=== PATIENT | female | born 1975 | race Caucasian/White ===

== ENCOUNTER 2018-12-23 20:08 | Emergency (ER) | payer OTHER ==
--- NOTE | 2018-12-23 20:13 | PDOC ---
Rapid Medical Evaluation Time Seen by Provider: 12/23/18 20:11 Medical Evaluation: Allergies Allergy/AdvReac Type Severity Reaction Status Date / Time ciprofloxacin [From Cipro] Allergy Hives Verified 07/26/14 11:40 ciprofloxacin HCl Allergy Hives Verified 07/26/14 11:40 [From Cipro] latex Allergy Verified 07/26/14 11:40 12/23/18 20:11 I have performed a brief in-person evaluation of this patient. The patient presents with a chief complaint of: nausea since thursday, concern for . LMP 11/04 Pertinent physical exam findings: well appearing I have ordered the following: upreg The patient will proceed to the ED for further evaluation. Discharge Disposition - Diagnosis Possible - Referrals - Patient Instructions - Post Discharge Activity
[2018-12-23 20:16] VITALS: BP 101/71; PULSE 89; TEMP 98.8; BMI 28.5
--- NOTE | 2018-12-23 22:08 | PDOC ---
History of Present Illness - General Chief Complaint: ,Possible Stated Complaint: SICK/POSSIBLY Time Seen by Provider: 12/23/18 20:11 History Source: Patient Exam Limitations: No Limitations - History of Present Illness Initial Comments: 43 year old female with PMH uterine fibroids, tilted uterus A4 presented to ED because "I think I am but the home urine test was negative."She reported her LMP started 11/04/18, lasted 4 days, which was normal for her. She reported 11/10 she went to [employer], drank 2 glasses of wine at a bar, but felt much more drunk and nauseous than she usually would drinking that amount. Since then she has felt nausea everyday, denied abdominal pain/pelvic pain. She reported 11/18 she experienced light brown spotting and pelvic cramping, that progressed to red bleeding on 11/19, continued 11/20 and then stopped 11/21. She stated the nausea has continued, and she feels as if she is (she has been actively trying to get ), but her home urine test today was negative. Past History - Past Medical History Allergies/Adverse Reactions: Allergies Allergy/AdvReac Type Severity Reaction Status Date / Time ciprofloxacin [From Cipro] Allergy Hives Verified 12/23/18 20:16 ciprofloxacin HCl Allergy Hives Verified 12/23/18 20:16 [From Cipro] latex Allergy Verified 12/23/18 20:16 Home Medications: Ambulatory Orders Meclizine HCl [Antivert -] 25 mg PO TID PRN #15 tablet 07/26/14 Clotrimazole [Lotrimin 1% Cream -] 1 applic TP DAILY #7 tube 12/23/18 - Psycho Social/Smoking Cessation Hx Smoking History: Current every day smoker Number of Cigarettes Smoked Daily: 12 Information on smoking cessation initiated: No Hx Alcohol Use: No Drug/Substance Use Hx: No Review of Systems - Review of Systems Able to Perform ROS?: Yes Comments:: ROS General: denied fever, chills, generalized weakness. HEENT: denied sore throat, rhinorrhea, ear pain. Cardiovascular: denied chest pain, palpitations, syncope, diaphoresis. Respiratory: denied shortness of breath, cough, sputum production, hemoptysis. Gastrointestinal: admitted to nausea. denied abdominal pain, vomiting, diarrhea , constipation, blood in stool. Genitourinary: admitted to vaginal bleeding, vaginal discharge. denied dysuria, increased urinary frequency, hematuria, urinary incontinence, flank pain. Back: denied back pain. Musculoskeletal: denied joint pain, muscle pain, joint swelling. Neurological: denied headache, dizziness, numbness, tingling, weakness. Integumentary: denied rash, laceration, abrasion. Hematologic/Lymphatic: denied bruising or bleeding. PE Constitutional: Well-nourished, Well-developed, appearing stated age. HEENT: head is normocephalic, atraumatic. EOMI. PERRLA. Neck: supple. Full ROM. Cardiovascular: regular heart rhythm. no murmurs. no pericardial friction rub. Respiratory: clear to auscultation bilaterally. no crackles, rhonchi or wheezing. no stridor. Gastrointestinal: soft, nontender. normal bowel sounds. no rebound, guarding, masses. Pelvic: normal external genitalia. no CMT. no adnexal tenderness on bimanual examination. white cottage cheese like discharge in vaginal canal. no blood in vaginal canal. unable to visualize cervix on speculum examination 2/2 pt comfort (pt reported her tilted uterus makes it hard to see her cervix). cervix felt closed on bimanual palpation. Extremities: peripheral pulses intact. no lower extremity edema. Neurological: CN 2-12 grossly intact. moves all four extremities. Psych: awake, alert, oriented x3. follows commands. answers questions appropriately. *Physical Exam - Vital Signs Last Vital Signs Temp Pulse Resp BP Pulse Ox 98.8 F 89 18 101/71 97 12/23/18 20:10 12/23/18 20:10 12/23/18 20:10 12/23/18 20:10 12/23/18 20:10 ED Treatment Course - LABORATORY CBC & Chemistry Diagram: 12/23/18 22:05 12/23/18 22:05 - RADIOLOGY Radiology Studies Ordered: Category Date Time Status TRANSVAGINAL ULTRASOUND US [US] Stat Ultrasound 12/23/18 21:59 Ordered Medical Decision Making - Medical Decision Making 43 year old female with above PMH presented to ED for nausea, increased nipple sensation since 11/10, LMP 11/04. Initial Vital Signs Temp Pulse Resp BP Pulse Ox 98.8 F 89 18 101/71 97 12/23/18 20:10 12/23/18 20:10 12/23/18 20:10 12/23/18 20:10 12/23/18 20:10 Afebrile. No tachycardia. No tachypnea. Mild hypotension, would be normal in . No hypoxia on room air. Labs ordered: CBC, CMP, lipase, mag, serum beta quant, UA/UC, PT/INR, T&S, GC/ Chlamydia amplification Imaging ordered: TVUS Medications ordered: none 12/23/18 22:42 CBC WBC 11.8 K/mm3 (4.0-10.0) H 12/23/18 22:05 RBC 4.45 M/mm3 (3.60-5.2) 12/23/18 22:05 Hgb 14.0 GM/dL (10.7-15.3) 12/23/18 22:05 Hct 40.3 % (32.4-45.2) 12/23/18 22:05 MCV 90.7 fl (80-96) 12/23/18 22:05 MCH 31.5 pg (25.7-33.7) 12/23/18 22:05 MCHC 34.7 g/dl (32.0-36.0) 12/23/18 22:05 RDW 13.3 % (11.6-15.6) 12/23/18 22:05 Plt Count 252 K/MM3 (134-434) 12/23/18 22:05 MPV 8.9 fl (7.5-11.1) 12/23/18 22:05 Absolute Neuts (auto) 6.0 K/mm3 (1.5-8.0) 12/23/18 22:05 Neutrophils % 50.7 % (42.8-82.8) 12/23/18 22:05 Lymphocytes % 37.4 % (8-40) 12/23/18 22:05 Monocytes % 7.5 % (3.8-10.2) 12/23/18 22:05 Eosinophils % 3.5 % (0-4.5) 12/23/18 22:05 Basophils % 0.9 % (0-2.0) 12/23/18 22:05 Nucleated RBC % 0 % (0-0) 12/23/18 22:05 Leukocytosis without left shift. No anemia. CMP Sodium 139 mmol/L (136-145) 12/23/18 22:05 Potassium 3.7 mmol/L (3.5-5.1) 12/23/18 22:05 Chloride 106 mmol/L (98-107) 12/23/18 22:05 Carbon Dioxide 28 mmol/L (21-32) 12/23/18 22:05 Anion Gap 5 MMOL/L (8-16) L 12/23/18 22:05 BUN 8.2 mg/dL (7-18) 12/23/18 22:05 Creatinine 0.7 mg/dL (0.55-1.3) 12/23/18 22:05 Est GFR (CKD-EPI)AfAm 121.27 12/23/18 22:05 Est GFR (CKD-EPI)NonAf 104.64 12/23/18 22:05 Random Glucose 93 mg/dL (74-106) 12/23/18 22:05 Calcium 8.7 mg/dL (8.5-10.1) 12/23/18 22:05 Magnesium 2.0 mg/dL (1.8-2.4) 12/23/18 22:05 Total Bilirubin 0.3 mg/dL (0.2-1) 12/23/18 22:05 AST 15 U/L (15-37) 12/23/18 22:05 ALT 25 U/L (13-61) 12/23/18 22:05 Alkaline Phosphatase 51 U/L (45-117) 12/23/18 22:05 Total Protein 7.0 g/dl (6.4-8.2) 12/23/18 22:05 Albumin 3.6 g/dl (3.4-5.0) 12/23/18 22:05 Lipase 143 U/L (73-393) 12/23/18 22:05 Beta HCG, Quant < 1.0 mIU/ml 12/23/18 22:05 No leukocytosis. No anemia. No PELON. No transaminitis. Lipase wnl. Beta quant negative. 12/23/18 23:23 Urine Test Results Urine Color Yellow 12/23/18 22:55 Urine Appearance Clear 12/23/18 22:55 Urine pH 6.0 (5.0-8.0) 12/23/18 22:55 Ur Specific [place] 1.015 (1.010-1.035) 10/31/19 22:55 Urine Protein Negative (NEGATIVE) 12/23/18 22:55 Urine Glucose (UA) Negative (NEGATIVE) 12/23/18 22:55 Urine Ketones Negative (NEGATIVE) 12/23/18 22:55 Urine Blood Negative (NEGATIVE) 12/23/18 22:55 Urine Nitrite Negative (NEGATIVE) 12/23/18 22:55 Urine Bilirubin Negative (NEGATIVE) 12/23/18 22:55 Ur Leukocyte Esterase Trace (NEGATIVE) 12/23/18 22:55 WBC<5 Asymptomatic. contaminated sample. Negative for UTI. GC/Chlamydia pending. -Pt reported last STI testing negative x1 month -Pt reported no new sexual partners -Pt reported she is not suspicious of STI, wants to wait for results for treatment Pt requesting discharge prior to TVUS report. Pt given information to call for results. Pt given return precautions. Pt discharged. Will send Lotrimin intravaginal cream daily x7 days. Discharge - Discharge Information Problems reviewed: Yes Clinical Impression/Diagnosis: Nausea, Vaginal bleeding, Yeast infection Condition: Stable Disposition: HOME - Admission No - Additional Discharge Information Prescriptions: Clotrimazole [Lotrimin 1% Cream -] 1 applic TP DAILY #7 tube - Follow up/Referral - Patient Discharge Instructions Patient Printed Discharge Instructions: DI for Vaginal Yeast Infection, DI for Nausea -- Adult Additional Instructions: Follow up with your OBGYN within 5 days. Your care is not complete until you follow up. Insert the vaginal cream nightly for 7 days to treat the yeast infection. Return to the Emergency Department for increasing pain, vomiting, fever, lightheadedness, chest pain, shortness of breath, or any other new, worsening or concerning symptoms. - Post Discharge Activity Work/Back to School Note: Back to Work
[2018-12-23 22:22] LABS: INR 0.91 (0.83-1.09); PROTHROMBIN TIME (PATIENT) 10.7 SEC (9.7-13.0)
[2018-12-23 22:24] LABS: BASO % 0.9 % (0-2.0); EOS % 3.5 % (0-4.5); HEMATOCRIT 40.3 % (32.4-45.2); LYMPH % 37.4 % (8-40); MCH 31.5 pg (25.7-33.7); MCHC 34.7 g/dl (32.0-36.0); MEAN CELL VOLUME 90.7 fl (80-96); MEAN PLT VOLUME 8.9 fl (7.5-11.1); MONO % 7.5 % (3.8-10.2); NEUT % 50.7 % (42.8-82.8); PLATELET COUNT 252 K/MM3 (134-434); RBC 4.45 M/mm3 (3.60-5.2); RDW 13.3 % (11.6-15.6); WHITE BLOOD COUNT 11.8 K/mm3 (4.0-10.0)
--- NOTE | 2018-12-23 22:30 | PDOC ---
Attending Attestation - Resident Resident Name: Marsha Rock - ED Attending Attestation I have performed the following: I have examined & evaluated the patient, The case was reviewed & discussed with the resident, I agree w/resident's findings & plan, Exceptions are as noted - HPI HPI: 12/23/18 22:28 43F A4 pmh uterine fibroids states she thinks she is and noted some vaginal spotting - Physicial Exam PE: 12/24/18 01:16 Agree with exam as documented by resident - Medical Decision Making 12/24/18 01:29 Evaluate for , early iup vs SAB, menstruation, consider endometriosis/ adenomyosis f/u labs, tvus, ua, ucx tvus consistent with adenomyosis
[2018-12-23 22:36] LABS: ALBUMIN 3.6 g/dl (3.4-5.0); ALK PHOS 51 U/L (45-117); ANION GAP 5 MMOL/L (8-16); BILIRUBIN,TOTAL 0.3 mg/dL (0.2-1); BLOOD UREA NITROGEN 8.2 mg/dL (7-18); CALCIUM 8.7 mg/dL (8.5-10.1); CHLORIDE 106 mmol/L (98-107); CO2 28 mmol/L (21-32); CREATININE 0.7 mg/dL (0.55-1.3); GLUCOSE,RANDOM 93 mg/dL (74-106); LIPASE 143 U/L (73-393); POTASSIUM 3.7 mmol/L (3.5-5.1); SGOT/AST 15 U/L (15-37); SGPT/ALT 25 U/L (13-61); SODIUM 139 mmol/L (136-145)
[2018-12-23 23:16] LABS: EPI CELLS 4.3 /HPF (0-5/HPF); HYALINE CASTS 4 /lpf (0-8); URINE APPEARANCE CLEAR; URINE BACTERIA 38.7 /hpf (NEGATIVE); URINE BILIRUBIN NEGATIVE (NEGATIVE); URINE COLOR YELLOW; URINE GLUCOSE (UA) NEGATIVE (NEGATIVE); URINE KETONE NEGATIVE (NEGATIVE); URINE LEUK ESTERASE TRACE (NEGATIVE); URINE NITRITE NEGATIVE (NEGATIVE); URINE PROTEIN NEGATIVE (NEGATIVE); URINE RBC 3 /hpf (0-4); URINE UROBILINOGEN 0.2 mg/dL (0.2-1.0); URINE WBC 1 /hpf (0-5)
== END 2018-12-24 00:14 | disposition home or self-care (01) ==
LOC: JER 20:08
DX: B37.3 Candidiasis of vulva and vagina (principal); Z88.1 Allergy status to other antibiotic agents; Z91.040 Latex allergy status; Z86.2 Personal history of diseases of the blood and blood-forming organs and certain disorders involving the immune mechanism; F17.210 Nicotine dependence, cigarettes, uncomplicated
CPT/HCPCS: 36415; 76830-TC; 80053; 81003; 83690; 83735; 84702; 85025; 85610; 86850; 86900; 86901; 87491; 87591; 99282-25

== ENCOUNTER 2021-02-11 09:27 | Emergency (ER) | payer OTHER ==
[2021-02-11 09:57] VITALS: BP 128/72; PULSE 85; TEMP 97.8; BMI 31.1
[2021-02-11 12:26] LABS: URINE APPEARANCE CLEAR; URINE BILIRUBIN NEGATIVE (NEGATIVE); URINE COLOR YELLOW; URINE GLUCOSE (UA) NEGATIVE (NEGATIVE); URINE KETONE NEGATIVE (NEGATIVE); URINE LEUK ESTERASE NEGATIVE (NEGATIVE); URINE NITRITE NEGATIVE (NEGATIVE); URINE PROTEIN NEGATIVE (NEGATIVE); URINE UROBILINOGEN 0.2 mg/dL (0.2-1.0)
[2021-02-11 12:29] LABS: HCG,QUALITATIVE URINE Negative
== END 2021-02-11 13:30 | disposition home or self-care (01) ==
LOC: JER 09:27
DX: M54.50 Low back pain, unspecified (principal)
CPT/HCPCS: 74018-TC-FY; 76830-TC; 81003; 84703; 87086; 99285-25

== ENCOUNTER 2021-08-25 20:21 | Emergency (ER) | payer OTHER ==
[2021-08-25 20:31] VITALS: BP 100/77; PULSE 88; TEMP 98.9; BMI 29.9
[2021-08-25] MEDS ORDERED: LIDOCAINE 5% TOPICAL PATCH TP ONE (21:37)
[2021-08-25] MEDS ORDERED: IBUPROFEN 600 MG TABLET (FP) PO ONE ×2 (21:37→23:21)
[2021-08-25] MEDS ORDERED: LIDOCAINE PATCH REMOVAL MC SCH (22:00)
[2021-08-25] MEDS ORDERED: LIDOCAINE 5% TOPICAL PATCH ONE (23:51)
== END 2021-08-26 00:08 | disposition home or self-care (01) ==
LOC: JERFT 20:21 → JER 20:21 → JERFT 08-26 00:08
DX: S89.81XA Other specified injuries of right lower leg, initial encounter (principal); V18.0XXA Pedal cycle driver injured in noncollision transport accident in nontraffic accident, initial encounter
CPT/HCPCS: 73502-TC-RT-FY; 73562-TC-RT-FY; 99284-25

== ENCOUNTER 2023-02-11 10:04 | Emergency (ER) | payer OTHER ==
[2023-02-11 10:42] VITALS: BP 109/68; PULSE 80; RESP 18; TEMP 98.4; BMI 31.1
== END 2023-02-11 13:46 | disposition home or self-care (01) ==
LOC: JERFT 10:04
DX: R07.0 Pain in throat (principal); B34.9 Viral infection, unspecified; R05.9 Cough, unspecified; R50.9 Fever, unspecified; M79.10 Myalgia, unspecified site; R53.83 Other fatigue; R63.0 Anorexia; M54.9 Dorsalgia, unspecified; Z20.822 Contact with and (suspected) exposure to COVID-19
CPT/HCPCS: 0241U-QW; 71046-TC-FY; 99284-25

== ENCOUNTER 2023-07-09 11:52 | Emergency (ER) | payer OTHER ==
[2023-07-09 11:59] VITALS: RESP 18; BMI 31.1
[2023-07-09] MEDS ORDERED: KETOROLAC TROMETHAMINE 30 MG/1 ML VIAL ONE (12:41)
[2023-07-09] MEDS ORDERED: METHOCARBAMOL 500 MG TABLET ONE (12:41)
[2023-07-09] MEDS ORDERED: LIDOCAINE 4% PATCH TP ONE (12:41)
[2023-07-09] MEDS: METHOCARBAMOL 500 MG TABLET PO ONE (12:52)
[2023-07-09] MEDS: KETOROLAC TROMETHAMINE 60 MG/2 ML VIAL IM ONE (12:52)
[2023-07-09] MEDS: LIDOCAINE 5% TOPICAL PATCH TP ONE (12:57)
[2023-07-09 13:15] LABS: HCG,QUALITATIVE URINE Negative
[2023-07-09 13:22] LABS: PH,URINE 6.5 (5.0-8.0); URINE APPEARANCE CLEAR; URINE BILIRUBIN NEGATIVE (NEGATIVE); URINE COLOR YELLOW; URINE GLUCOSE (UA) NEGATIVE (NEGATIVE); URINE KETONE NEGATIVE (NEGATIVE)
[2023-07-09 13:23] LABS: URINE LEUK ESTERASE NEGATIVE (NEGATIVE); URINE NITRITE NEGATIVE (NEGATIVE); URINE PROTEIN NEGATIVE (NEGATIVE); URINE UROBILINOGEN 0.2 mg/dL (0.2-1.0)
[2023-07-09 15:51] VITALS: BP 101/70; PULSE 61; TEMP 98.1
[2023-07-09] MEDS ORDERED: LIDOCAINE PATCH REMOVAL MC ONE (22:00)
== END 2023-07-09 17:20 | disposition home or self-care (01) ==
LOC: JERFT 11:52
PROC: 3E0233Z Introduction of Anti-inflammatory into Muscle, Percutaneous Approach (ICD-10-PCS; principal; 2023-07-09)
DX: M25.552 Pain in left hip (principal); M54.50 Low back pain, unspecified; R10.2 Pelvic and perineal pain
CPT/HCPCS: 72100-TC-FY; 73502-TC-LT-FY; 74176-TC; 76830-TC; 81003; 84703; 99285-25